=== PATIENT | male | born 1975 | race Caucasian/White ===

== ENCOUNTER 2025-01-03 05:51 | Emergency (ER) | payer OTHER, SELFPAY ==
[2025-01-03 05:53] VITALS: BP 149/90; PULSE 86; RESP 18; TEMP 36.6; O2SAT 97; BMI 26.6
[2025-01-03] MEDS: Lidocaine 2% /Epi 1:100 (20ml) 20 ML VIAL INFILT (06:07)
--- NOTE | 2025-01-03 07:11 | EX.ED.DYSGE1 ---
HPI History of Present Illness Chief Complaint: Laceration Informant: patient Narrative Narrative: Patient is a 49-year-old male with no significant past medical history. He states this morning he was working out as he normally does and was trying to do high box jumps. He states that he was doing his last few reps and lost focus and hit the edge of the box and cut his left vann. He denies any other injuries. He denies any history of bleeding disorder or blood thinner use. He states the injury happened just roughly 20 to 30 minutes ago. However based on the depth he feels it will need close and therefore comes in for evaluation. [facility] Medical History no medical history no medical history Allergy/AdvReac Type Severity Reaction Status Date / Time No Known Allergies Allergy Verified 01/03/25 05:51 Social History Smoking Status: Never smoker ROS ROS ED Constitutional Constitutional ED: Denies chills or fever(s) ENT ENT ED: Denies sore throat Cardiovascular Cardiovascular: Reports other Details: Negative syncope ; Denies chest pain Respiratory/Chest Respiratory/Chest: Denies cough or dyspnea Gastrointestinal Gastrointestinal: Denies abdominal pain, diarrhea, nausea or vomiting Musculoskeletal Musculoskeletal: Reports other Details: Positive left vann pain Integumentary Reports other Details: Positive left vann laceration Neurologic Neurologic: Denies headache(s) or paresthesias Hematologic/Lymphatic Hematologic/Lymphatic: Denies easy bleeding or easy bruising EXAM Physical Exam Const Vital Signs: 01/03/25 05:53 01/03/25 07:20 Temperature 97.8 F 98 F Temperature Source Oral Pulse Rate 86 74 Respiratory Rate 18 16 Blood Pressure 149/90 H 117/75 Blood Pressure Mean 109 89 Pulse Ox 97 100 Oxygen Delivery Method Room Air Positive well nourished and well developed General Appearance ED: well developed HEENT HEENT Narrative: Normocephalic atraumatic Eyes PERRL and EOMs intact bilaterally General Eye ED: Negative for scleral icterus Neck supple Resp normal respiratory effort and clear to auscultation bilaterally Cardio regular rate and regular rhythm Extremity Extremity Narrative: Left lower extremity is neurovascularly intact Along the anterior aspect of the distal third of the left vann is a subcutaneous layer deep 8 cm laceration with minimal ooze of blood and no foreign body No sign of ligamentous or tendon damage. No bony injury noted Remainder of the exam is normal Neuro oriented x3, CN's II-XII intact bilaterally and no sensory deficits noted Sensorium / Orientation: alert Motor Exam: strength 5/5 throughout Psych mental status grossly normal Skin Skin Narrative: Laceration to the anterior aspect of the left vann as documented above without findings of arterial injury ligamentous or tendon damage or secondary infection MDM MDM MDM Narrative Medical decision making narrative: Patient arrived to the ER with stable vitals. He sustained a simple laceration to the left vann. He is able to walk on the lower leg and therefore my concern for underlying fracture is low and there is no need for an x-ray. Physical exam shows no sign of retained foreign body or ligamentous or tendon injury or arterial injury. Therefore there is no need for emergent orthopedic or podiatry consultation. The patient was offered tetanus but states he does not feel he needs it based on the laceration occurring from a workout box that is indoors. The wound is minimally contaminated and he is not immunosuppressive there is no need for prophylactic antibiotics. The wound was closed as document below and patient is otherwise safe for discharge. The left lower leg was cleaned with chlorhexidine. It was anesthetized using 10 mL of 2% lidocaine with epinephrine and local fashion. The wound was then copiously irrigated with normal saline. Then 22 sutures that were a combination between 3 and 4-0 Ethilon were placed in simple interrupted fashion bringing the wound edges together well with good approximation. Patient tolerated the procedure well without complication Discharge Plan Triage Chief Complaint: Laceration ED Provider: Len Adames Dx/Rx/DC Orders Clinical Impression: Laceration of left lower leg Instructions: ED Laceration Extremity Primary Care Provider: Care Physician,No Primary Referrals: David Dc MD [Med Staff - Active Staff] - Care Physician,No Primary [Primary Care Provider] - Activity Restrictions/Additional Instructions: Please see your family doctor or return to the ER in 7 to 10 days for suture removal Print Language: Vietnamese Disposition Disposition: Home, Self Care Discharge Date/Time: 01/03/25 07:21
[2025-01-03 07:20] VITALS: BP 117/75; PULSE 74; RESP 16; TEMP 36.6; O2SAT 100
== END 2025-01-03 07:21 | disposition home or self-care (01) ==
PROVIDERS: Emergency Provider Emergency Medicine; Visit Provider Emergency Medicine
DX: S81.812A Laceration without foreign body, left lower leg, initial encounter (principal); W26.8XXA Contact with other sharp object(s), not elsewhere classified, initial encounter; Y93.89 Activity, other specified
CPT/HCPCS: 12004; 99283